=== PATIENT | male | born 1935 | race Caucasian/White ===

== ENCOUNTER 2016-10-17 12:52 | Inpatient (IN) | payer MEDICARE ==
[~2016-10-17] VITALS: Ht 175.3 cm; Wt 71.0 kg
[~2016-10-17 12:52] MED LIST: AMLO5TAB66 PO; DIVA125T PO; DIVA125T2 PO; METF500T4 PO; OMEP10CA41 PO
[2016-10-17 14:29] VITALS: BP 120/69
[2016-10-17] MEDS ORDERED: DEXTROSE 50%-WATER 25 GM/50 ML SYRINGE IVP PRN (15:15)
[2016-10-17 15:48] VITALS: BP 115/71
[2016-10-17] MEDS ORDERED: 0.9% SODIUM CHLORIDE 10 ML SYRINGE IVP PRN (16:15)
[2016-10-17] MEDS: SODIUM CHLORIDE 0.9% 1,000 ML IV SCH (16:21)
[2016-10-17 16:49] LABS: BASOPHILS % (AUTO) 0.4 % (0.0-2.0); EOSINOPHILS % (AUTO) 0.3 % (1.0-6.0); HEMATOCRIT 44.5 % (41-53); HEMOGLOBIN 14.4 g/dL (13.5-17.5); LYMPHOCYTES # (AUTO) 1.7 K/uL (1.0-4.8); LYMPHOCYTES % (AUTO) 18.4 % (22.0-44.0); MEAN CORPUSCULAR HEMOGLOBIN 29.2 pg (26.0-34.0); MEAN CORPUSCULAR HGB CONC 32.4 G/dL (31.0-37.0); MEAN CORPUSCULAR VOLUME 90 fL (80-100); MONOCYTES # (AUTO) 1.3 K/uL (0.1-1.0); MONOCYTES % (AUTO) 13.7 % (2.0-9.0); NEUTROPHILS # (AUTO) 6.2 K/uL (1.8-7.7); NEUTROPHILS % (AUTO) 67.2 % (40.0-70.0); PLATELET COUNT (AUTO) 285 K/uL (150-450); RED BLOOD CELL COUNT(AUTO) 4.93 MIL/uL (4.50-5.90); RED CELL DISTRIBUTION WIDTH 15.3 % (11.5-14.5); WHITE BLOOD COUNT (AUTO) 9.2 K/uL (4.5-11.0)
[2016-10-17 17:23] LABS: ALBUMIN 3.3 g/dL (3.4-5.0); BILIRUBIN,TOTAL 0.4 mg/dL (0.1-1.0); CHOL/HDL RATIO 6.3 (4.2-7.3); CREATININE 2.44 mg/dL (0.60-1.30); POTASSIUM 5.2 mmol/L (3.5-5.1); THYROID STIMULATING HORMONE 2.98 uIU/mL (0.36-3.74); TOTAL PROTEIN, SERUM 8.2 g/dL (6.4-8.2)
[2016-10-17 17:42] LABS: GLUCOSE COMMENT 1 Received Meds; GLUCOSE,POINT OF CARE 311 MG/DL (70-110)
[2016-10-17 17:51] LABS: HEMOGLOBIN A1C 8.3 % (4.5-6.2)
[2016-10-17] MEDS: INSULIN ASPART 100 UNITS/ML SQ PRN (17:56)
[2016-10-17 19:17] VITALS: BP 128/70
[2016-10-17] MEDS ORDERED: *CLINICAL-RENAL DOSING MEDICATIONS CLINICAL ONE ×2 (19:45)
[2016-10-17] MEDS ORDERED: SitaGLIPtin PHOSPHATE 50 MG TABLET PO SCH (19:45)
[2016-10-17 20:51] LABS: APPEARANCE,URINE CLEAR (CLEAR); PH,URINE 5.5 (5.0-8.0); PROTEIN,URINE NEGATIVE (NEGATIVE)
[2016-10-17 20:52] LABS: GLUCOSE, URINE (UA) 500 mg/dL (NEGATIVE); KETONES,URINE 40 mg/dL (NEGATIVE); OCCULT BLOOD,URINE TRACE (NEGATIVE)
[2016-10-17 20:53] LABS: LEUKOCYTE ESTERASE ,URINE NEGATIVE (NEGATIVE)
[2016-10-17 20:54] LABS: ADD UA MICROSCOPIC YES
[2016-10-17 21:31] LABS: SQUAMOUS EPITHELIAL CELL,UR Rare /LPF (None Seen)
[2016-10-17 21:33] LABS: RBC,URINE 0-2 /HPF (0-2)
[2016-10-17] MEDS: MEMANTINE HCL 5 MG TABLET PO SCH (22:08)
[2016-10-17] MEDS: DIVALPROEX SODIUM 125 MG DR TABLET PO SCH (22:08)
[2016-10-17] MEDS: SitaGLIPtin PHOSPHATE 25 MG TABLET PO SCH (22:08)
[2016-10-17 22:21] LABS: GLUCOSE,POINT OF CARE 139 MG/DL (70-110)
[2016-10-17 23:28] VITALS: BP 112/50
[2016-10-18 04:15] VITALS: BP 131/68
[2016-10-18] MEDS: INSULIN ASPART 100 UNITS/ML SQ PRN ×3 (06:01→23:55)
[2016-10-18 06:07] LABS: GLUCOSE,POINT OF CARE 201 MG/DL (70-110)
[2016-10-18 06:40] LABS: BASOPHILS % (AUTO) 0.4 % (0.0-2.0); EOSINOPHILS % (AUTO) 1.2 % (1.0-6.0); HEMATOCRIT 40.9 % (41-53); HEMOGLOBIN 13.3 g/dL (13.5-17.5); LYMPHOCYTES % (AUTO) 21.8 % (22.0-44.0); MEAN CORPUSCULAR HEMOGLOBIN 29.6 pg (26.0-34.0); MEAN CORPUSCULAR HGB CONC 32.4 G/dL (31.0-37.0); MEAN CORPUSCULAR VOLUME 91 fL (80-100); MONOCYTES # (AUTO) 1.2 K/uL (0.1-1.0); MONOCYTES % (AUTO) 13.4 % (2.0-9.0); NEUTROPHILS # (AUTO) 5.7 K/uL (1.8-7.7); NEUTROPHILS % (AUTO) 63.2 % (40.0-70.0); PLATELET COUNT (AUTO) 267 K/uL (150-450); RED BLOOD CELL COUNT(AUTO) 4.48 MIL/uL (4.50-5.90); RED CELL DISTRIBUTION WIDTH 15.1 % (11.5-14.5)
[2016-10-18 06:59] LABS: CALCIUM, TOTAL 8.9 mg/dL (8.8-10.5); CREATININE 1.94 mg/dL (0.60-1.30); MAGNESIUM 2.6 mg/dL (1.80-2.40); PHOSPHORUS 4.9 mg/dL (2.5-4.9); POTASSIUM 5.2 mmol/L (3.5-5.1)
[2016-10-18 07:04] VITALS: BP 119/59
[2016-10-18 08:20] LABS: APPEARANCE,URINE CLOUDY (CLEAR); GLUCOSE, URINE (UA) >=1000 mg/dL (NEGATIVE); KETONES,URINE 40 mg/dL (NEGATIVE); LEUKOCYTE ESTERASE ,URINE NEGATIVE (NEGATIVE); OCCULT BLOOD,URINE NEGATIVE (NEGATIVE); PH,URINE 5.5 (5.0-8.0); PROTEIN,URINE NEGATIVE (NEGATIVE)
[2016-10-18 08:23] LABS: ADD UA MICROSCOPIC YES
[2016-10-18] MEDS: SODIUM CHLORIDE 0.9% 1,000 ML IV SCH (08:24)
[2016-10-18] MEDS: AmLODIPine BESYLATE 5 MG TABLET PO SCH (08:24)
[2016-10-18] MEDS: DIVALPROEX SODIUM 125 MG DR TABLET PO SCH ×2 (08:25→20:18)
[2016-10-18] MEDS: MEMANTINE HCL 5 MG TABLET PO SCH ×2 (08:25→20:18)
[2016-10-18] MEDS: OMEPRAZOLE 10 MG CAPSULE PO SCH (08:25)
[2016-10-18] MEDS: SitaGLIPtin PHOSPHATE 25 MG TABLET PO SCH (08:25)
[2016-10-18 08:31] LABS: RBC,URINE 0-2 /HPF (0-2); SQUAMOUS EPITHELIAL CELL,UR Few /LPF (None Seen)
[2016-10-18 11:17] VITALS: BP 150/78
[2016-10-18 11:26] LABS: GLUCOSE,POINT OF CARE 197 MG/DL (70-110)
[2016-10-18] MEDS ORDERED: INFLUENZA VIRUS VACCINE QVS 2016-17 (3YR+)/PF 60 MCG/0.5 ML SYRINGE IM ONE (12:30)
[2016-10-18] MEDS ORDERED: DEXTROSE 5%-0.45% SODIUM CHL 1,000 ML IV SCH (14:15)
[2016-10-18 15:07] VITALS: BP 117/63
[2016-10-18] MEDS: SODIUM CHLORIDE 0.45% 1,000 ML IV SCH (16:14)
[2016-10-18 16:57] LABS: GLUCOSE COMMENT 1 Received Meds; GLUCOSE,POINT OF CARE 239 MG/DL (70-110)
[2016-10-18 21:24] VITALS: BP 124/72
[2016-10-18 23:42] VITALS: BP 104/54
[2016-10-19] MEDS: SODIUM CHLORIDE 0.45% 1,000 ML IV SCH (05:51)
[2016-10-19] MEDS: INSULIN ASPART 100 UNITS/ML SQ PRN ×4 (06:11→20:47)
[2016-10-19 06:34] VITALS: BP 126/68
[2016-10-19 06:42] LABS: GLUCOSE COMMENT 1 Received Meds; GLUCOSE,POINT OF CARE 134 MG/DL (70-110)
[2016-10-19 06:43] LABS: GLUCOSE,POINT OF CARE 120 MG/DL (70-110)
[2016-10-19 08:00] VITALS: BP 126/65
[2016-10-19] MEDS: HEPARIN SODIUM,PORCINE 5,000 UNITS/ML VIAL SQ SCH ×2 (08:43→20:32)
[2016-10-19] MEDS: MEMANTINE HCL 5 MG TABLET PO SCH ×2 (08:43→20:31)
[2016-10-19] MEDS: DIVALPROEX SODIUM 125 MG DR TABLET PO SCH ×2 (08:43→20:30)
[2016-10-19] MEDS: SitaGLIPtin PHOSPHATE 25 MG TABLET PO SCH (08:43)
[2016-10-19] MEDS: AmLODIPine BESYLATE 5 MG TABLET PO SCH (08:44)
[2016-10-19] MEDS: OMEPRAZOLE 10 MG CAPSULE PO SCH (08:44)
[2016-10-19 11:04] LABS: BASOPHILS % (AUTO) 0.4 % (0.0-2.0); EOSINOPHILS % (AUTO) 1.4 % (1.0-6.0); HEMATOCRIT 34.8 % (41-53); HEMOGLOBIN 11.4 g/dL (13.5-17.5); LYMPHOCYTES # (AUTO) 1.5 K/uL (1.0-4.8); MEAN CORPUSCULAR HEMOGLOBIN 29.5 pg (26.0-34.0); MEAN CORPUSCULAR HGB CONC 32.7 G/dL (31.0-37.0); MEAN CORPUSCULAR VOLUME 90 fL (80-100); MONOCYTES # (AUTO) 0.8 K/uL (0.1-1.0); NEUTROPHILS # (AUTO) 3.4 K/uL (1.8-7.7); NEUTROPHILS % (AUTO) 59.2 % (40.0-70.0); PLATELET COUNT (AUTO) 209 K/uL (150-450); RED BLOOD CELL COUNT(AUTO) 3.85 MIL/uL (4.50-5.90); RED CELL DISTRIBUTION WIDTH 14.9 % (11.5-14.5); WHITE BLOOD COUNT (AUTO) 5.8 K/uL (4.5-11.0)
[2016-10-19 11:21] LABS: CALCIUM, TOTAL 7.7 mg/dL (8.8-10.5); CREATININE 1.3 mg/dL (0.60-1.30); POTASSIUM 4.8 mmol/L (3.5-5.1)
[2016-10-19 11:25] LABS: MAGNESIUM 2.1 mg/dL (1.80-2.40); PHOSPHORUS 2.8 mg/dL (2.5-4.9)
[2016-10-19 12:01] VITALS: BP 108/63
[2016-10-19 16:02] LABS: GLUCOSE,POINT OF CARE 230 MG/DL (70-110)
[2016-10-19 16:33] VITALS: BP 125/60
[2016-10-19 19:50] VITALS: BP 119/59
[2016-10-19] MEDS ORDERED: INSULIN DETEMIR 100 UNITS/ML SQ SCH (21:00)
[2016-10-19 21:48] LABS: GLUCOSE COMMENT 1 Received Meds; GLUCOSE,POINT OF CARE 138 MG/DL (70-110)
[2016-10-19 22:07] LABS: GLUCOSE,POINT OF CARE 132 MG/DL (70-110)
[2016-10-19 23:15] VITALS: BP 124/64
[2016-10-20 03:15] VITALS: BP 130/66
[2016-10-20] MEDS: INSULIN ASPART 100 UNITS/ML SQ PRN ×4 (06:20→20:09)
[2016-10-20 07:21] LABS: BASOPHILS % (AUTO) 0.3 % (0.0-2.0); EOSINOPHILS % (AUTO) 2.4 % (1.0-6.0); HEMATOCRIT 32.4 % (41-53); HEMOGLOBIN 10.7 g/dL (13.5-17.5); LYMPHOCYTES # (AUTO) 1.1 K/uL (1.0-4.8); LYMPHOCYTES % (AUTO) 27.8 % (22.0-44.0); MEAN CORPUSCULAR HEMOGLOBIN 29.5 pg (26.0-34.0); MEAN CORPUSCULAR HGB CONC 32.9 G/dL (31.0-37.0); MEAN CORPUSCULAR VOLUME 90 fL (80-100); MONOCYTES # (AUTO) 0.8 K/uL (0.1-1.0); MONOCYTES % (AUTO) 20.6 % (2.0-9.0); NEUTROPHILS % (AUTO) 48.9 % (40.0-70.0); PLATELET COUNT (AUTO) 184 K/uL (150-450); RED BLOOD CELL COUNT(AUTO) 3.61 MIL/uL (4.50-5.90); RED CELL DISTRIBUTION WIDTH 14.9 % (11.5-14.5)
[2016-10-20 07:35] LABS: ANION GAP 10 mmol/L (8-16); CARBON DIOXIDE 24 mmol/L (22-29); CHLORIDE 106 mmol/L (98-107); GLOMERULAR FILTR. RATE CALC > 60 mL/min (>60); POTASSIUM 3.5 mmol/L (3.5-5.1); SODIUM SERUM 140 mmol/L (136-145); UREA NITROGEN, BLOOD 12 mg/dL (7-18)
[2016-10-20 07:49] VITALS: BP 136/79
[2016-10-20] MEDS: OMEPRAZOLE 10 MG CAPSULE PO SCH (08:06)
[2016-10-20] MEDS: AmLODIPine BESYLATE 5 MG TABLET PO SCH (08:06)
[2016-10-20] MEDS: MEMANTINE HCL 5 MG TABLET PO SCH ×2 (08:07→19:45)
[2016-10-20] MEDS: SitaGLIPtin PHOSPHATE 25 MG TABLET PO SCH (08:07)
[2016-10-20] MEDS: HEPARIN SODIUM,PORCINE 5,000 UNITS/ML VIAL SQ SCH ×2 (08:07→19:45)
[2016-10-20] MEDS: DIVALPROEX SODIUM 125 MG DR TABLET PO SCH ×2 (08:07→19:43)
[2016-10-20 10:37] LABS: GLUCOSE COMMENT 1 Received Meds; GLUCOSE,POINT OF CARE 168 MG/DL (70-110)
[2016-10-20 11:23] VITALS: BP 127/79
[2016-10-20 11:32] LABS: GLUCOSE,POINT OF CARE 207 MG/DL (70-110)
[2016-10-20 15:16] VITALS: BP 120/69
[2016-10-20 18:32] LABS: GLUCOSE,POINT OF CARE 265 MG/DL (70-110)
[2016-10-20] MEDS ORDERED: DIVA125T PO (18:36)
[2016-10-20] MEDS ORDERED: HEPA500035 SQ (18:37)
[2016-10-20] MEDS ORDERED: INSU100V12 SQ (18:38)
[2016-10-20] MEDS ORDERED: MEMA5 PO (18:39)
[2016-10-20] MEDS ORDERED: SITA50 PO (18:40)
[2016-10-20] MEDS ORDERED: OMEP10 PO (18:40)
[2016-10-20] MEDS ORDERED: SIMV-259 PO (18:40)
[2016-10-20] MEDS ORDERED: INSU100C6 SQ (18:42)
[2016-10-20] MEDS ORDERED: INSNOV SQ (18:45)
[2016-10-20 20:01] VITALS: BP 102/44
[2016-10-20] MEDS ORDERED: INSULIN DETEMIR 100 UNITS/ML SQ SCH (21:00)
[2016-10-21] MEDS ORDERED: SitaGLIPtin PHOSPHATE 50 MG TABLET PO SCH (09:00)
[2016-10-21] MEDS ORDERED: SIMVASTATIN 10 MG TABLET PO SCH (09:00)
[2016-10-21 10:07] LABS: GLUCOSE COMMENT 1 Received Meds; GLUCOSE,POINT OF CARE 308 MG/DL (70-110)
== END 2016-10-20 20:50 | DRG 683 ==
LOC: 6N 14:06
PROVIDERS: ADMIT Internal Medicine; ATTEND Internal Medicine
PROC: 3E0234Z Introduction of Serum, Toxoid and Vaccine into Muscle, Percutaneous Approach (ICD-10-PCS; principal; 2016-10-19)
DX: N17.9 Acute kidney failure, unspecified (principal); N39.0 Urinary tract infection, site not specified; F03.91 Unspecified dementia, unspecified severity, with behavioral disturbance; N18.3 Chronic kidney disease, stage 3 (moderate); E78.2 Mixed hyperlipidemia; E87.8 Other disorders of electrolyte and fluid balance, not elsewhere classified; E87.5 Hyperkalemia; I13.10 Hypertensive heart and chronic kidney disease without heart failure, with stage 1 through stage 4 chronic kidney disease, or unspecified chronic kidney disease; E11.22 Type 2 diabetes mellitus with diabetic chronic kidney disease; E11.65 Type 2 diabetes mellitus with hyperglycemia; R62.7 Adult failure to thrive; E86.0 Dehydration; E55.9 Vitamin D deficiency, unspecified; F29 Unspecified psychosis not due to a substance or known physiological condition; Z79.84 Long term (current) use of oral hypoglycemic drugs; Z79.899 Other long term (current) drug therapy; Z83.3 Family history of diabetes mellitus; Z23 Encounter for immunization
CPT/HCPCS: 76770; 82306; 82570; 82962; 83036; 83735; 83970; 84100; 84156; 84443; 84540; 87086; 87106; 90471; J1644; J7030

== ENCOUNTER 2017-12-12 19:16 | Inpatient (IN) | payer MEDICARE, OTHER ==
[~2017-12-12 19:16] MED LIST changes: +CARV6 PO; -DIVA125T PO; -DIVA125T2 PO; +DIVA250T25 PO; +FAMO20 PO; +INSNOV SQ; +INSU100V12 SQ; -METF500T4 PO; +METF500T6 PO; +OMEP10 PO; -OMEP10CA41 PO; +SIMV-259 PO; +SITA50 PO; +VITAD1000 PO; +ZOLP10TA7 PO
[2017-12-12 19:20] VITALS: BP 125/61
[2017-12-12 20:37] LABS: BASOPHILS % (AUTO) 0.7 % (0.0-2.0); EOSINOPHILS % (AUTO) 2.2 % (1.0-6.0); HEMATOCRIT 31.6 % (41-53); HEMOGLOBIN 10.7 g/dL (13.5-17.5); LYMPHOCYTES # (AUTO) 1.4 K/uL (1.0-4.8); LYMPHOCYTES % (AUTO) 19.7 % (22.0-44.0); MEAN CORPUSCULAR HEMOGLOBIN 29.3 pg (26.0-34.0); MEAN CORPUSCULAR HGB CONC 33.9 G/dL (31.0-37.0); MEAN CORPUSCULAR VOLUME 87 fL (80-100); MONOCYTES # (AUTO) 1.2 K/uL (0.1-1.0); NEUTROPHILS # (AUTO) 4.2 K/uL (1.8-7.7); NEUTROPHILS % (AUTO) 60.4 % (40.0-70.0); PLATELET COUNT (AUTO) 231 K/uL (150-450); RED BLOOD CELL COUNT(AUTO) 3.66 MIL/uL (4.50-5.90); RED CELL DISTRIBUTION WIDTH 14.9 % (11.5-14.5)
[2017-12-12 20:57] LABS: CALCIUM, TOTAL 8.3 mg/dL (8.8-10.5); CREATININE 1.18 mg/dL (0.60-1.30); POTASSIUM 4.8 mmol/L (3.5-5.1)
[2017-12-12 21:00] LABS: PROTHROMBIN TIME 10.6 SEC (9.4-11.6)
[2017-12-12 21:03] LABS: BILIRUBIN,TOTAL 0.4 mg/dL (0.1-1.0); MAGNESIUM 1.5 mg/dL (1.80-2.40); TOTAL PROTEIN, SERUM 6.7 g/dL (6.4-8.2)
[2017-12-12 21:32] LABS: GLUCOMETER DEV NAME(LOC) 6N 2D; GLUCOSE,POINT OF CARE 300 MG/DL (70-110)
[2017-12-12] MEDS ORDERED: SIMVASTATIN 10 MG TABLET PO SCH (22:00)
[2017-12-12] MEDS ORDERED: ZOLPIDEM TARTRATE 5 MG TABLET PO PRN (22:00)
[2017-12-12] MEDS ORDERED: ZOLPIDEM TARTRATE 10 MG TABLET PO PRN (22:00)
[2017-12-12] MEDS ORDERED: ONDANSETRON HCL 4 MG/2 ML VIAL IVP PRN (22:00)
[2017-12-12] MEDS ORDERED: GLUCAGON,HUMAN RECOMBINANT 1 MG VIAL IM PRN (22:00)
[2017-12-12] MEDS ORDERED: 0.9% SODIUM CHLORIDE 10 ML SYRINGE IVP PRN (22:00)
[2017-12-12] MEDS: INSULIN LISPRO 100 UNITS/ML SQ PRN (22:19)
[2017-12-12] MEDS: HEPARIN SODIUM,PORCINE 5,000 UNITS/ML VIAL SQ SCH (23:12)
[2017-12-12 23:20] VITALS: BP 112/58
[2017-12-13 04:28] LABS: APPEARANCE,URINE CLEAR (CLEAR); BILIRUBIN,URINE NEGATIVE (NEGATIVE); GLUCOSE, URINE (UA) >=1000 mg/dL (NEGATIVE); KETONES,URINE TRACE mg/dL (NEGATIVE); LEUKOCYTE ESTERASE ,URINE NEGATIVE (NEGATIVE); NITRATE,URINE NEGATIVE (NEGATIVE); OCCULT BLOOD,URINE NEGATIVE (NEGATIVE); PH,URINE 5.5 (5.0-8.0); PROTEIN,URINE NEGATIVE (NEGATIVE); UROBILINOGEN,URINE 0.2 mg/dL (<=1.0)
[2017-12-13 04:36] VITALS: BP 102/57
[2017-12-13 05:32] LABS: BACTERIA,URINE None Seen /HPF (None Seen); RBC,URINE None Seen /HPF (0-2); WBC,URINE None Seen /HPF (0-5)
[2017-12-13] MEDS: INSULIN LISPRO 100 UNITS/ML SQ PRN ×4 (06:11→20:20)
[2017-12-13 06:54] LABS: EOSINOPHILS % (AUTO) 2.3 % (1.0-6.0); HEMATOCRIT 32.3 % (41-53); HEMOGLOBIN 11.1 g/dL (13.5-17.5); LYMPHOCYTES # (AUTO) 1.3 K/uL (1.0-4.8); LYMPHOCYTES % (AUTO) 22.1 % (22.0-44.0); MEAN CORPUSCULAR HEMOGLOBIN 29.6 pg (26.0-34.0); MEAN CORPUSCULAR HGB CONC 34.2 G/dL (31.0-37.0); MEAN CORPUSCULAR VOLUME 86 fL (80-100); MONOCYTES % (AUTO) 16.7 % (2.0-9.0); NEUTROPHILS # (AUTO) 3.3 K/uL (1.8-7.7); NEUTROPHILS % (AUTO) 57.9 % (40.0-70.0); PLATELET COUNT (AUTO) 225 K/uL (150-450); RED BLOOD CELL COUNT(AUTO) 3.74 MIL/uL (4.50-5.90); RED CELL DISTRIBUTION WIDTH 14.5 % (11.5-14.5)
[2017-12-13 06:57] LABS: ANION GAP 3 mmol/L (8-16); CALCIUM, TOTAL 8.4 mg/dL (8.8-10.5); CARBON DIOXIDE 32 mmol/L (22-29); CHLORIDE 100 mmol/L (98-107); CREATININE 1.12 mg/dL (0.60-1.30); GLOMERULAR FILTR. RATE CALC > 60 mL/min (>60); GLUCOSE,RANDOM 277 mg/dL (70-110); POTASSIUM 4.3 mmol/L (3.5-5.1); SODIUM SERUM 135 mmol/L (136-145); UREA NITROGEN, BLOOD 16 mg/dL (7-18)
[2017-12-13 07:08] LABS: GLUCOMETER DEV NAME(LOC) 6N 2D; GLUCOSE,POINT OF CARE 288 MG/DL (70-110)
[2017-12-13] MEDS: CARVEDILOL 6.25 MG TABLET PO SCH ×2 (08:23→20:20)
[2017-12-13] MEDS: MetFORMIN HCL 500 MG TABLET PO SCH ×2 (08:23→17:36)
[2017-12-13] MEDS: HEPARIN SODIUM,PORCINE 5,000 UNITS/ML VIAL SQ SCH ×3 (08:23→22:53)
[2017-12-13] MEDS: SitaGLIPtin PHOSPHATE 50 MG TABLET PO SCH (08:23)
[2017-12-13] MEDS: DIVALPROEX SODIUM 250 MG DR TABLET PO SCH ×2 (08:23→20:20)
[2017-12-13] MEDS: AmLODIPine BESYLATE 5 MG TABLET PO SCH (08:23)
[2017-12-13] MEDS: PANTOPRAZOLE SODIUM 40 MG/VIAL IVP SCH (08:23)
[2017-12-13] MEDS: CHOLECALCIFEROL (VIT D3) 1,000 UNITS TABLET PO SCH (08:23)
[2017-12-13] MEDS ORDERED: MAGNESIUM SULFATE 4 GM/WATER 100 ML IV PRN (08:30)
[2017-12-13] MEDS ORDERED: MAGNESIUM OXIDE 400 MG TABLET PO PRN (08:30)
[2017-12-13 08:31] VITALS: BP 128/68
[2017-12-13] MEDS ORDERED: SODIUM CHLORIDE 0.9% 250 ML IV ONE (08:44)
[2017-12-13] MEDS ORDERED: OMEPRAZOLE 10 MG CAPSULE PO SCH (09:00)
[2017-12-13] MEDS: MAGNESIUM SULFATE 2 GM in DEXTROSE 5%-WATER 50 ML IV PRN (10:00)
[2017-12-13 11:44] VITALS: BP 129/68
[2017-12-13 11:59] LABS: GLUCOMETER DEV NAME(LOC) 6N 1E; GLUCOSE,POINT OF CARE 251 MG/DL (70-110)
[2017-12-13 15:48] VITALS: BP 172/70
[2017-12-13 18:43] LABS: GLUCOMETER DEV NAME(LOC) 6N 2D; GLUCOSE,POINT OF CARE 179 MG/DL (70-110)
[2017-12-13] MEDS: SIMVASTATIN 20 MG TABLET PO SCH (20:20)
[2017-12-13 20:21] VITALS: BP 109/54
[2017-12-13 23:54] VITALS: BP 113/58
[2017-12-14 01:57] LABS: GLUCOMETER DEV NAME(LOC) 6N 2D; GLUCOSE,POINT OF CARE 252 MG/DL (70-110)
[2017-12-14 04:25] VITALS: BP 121/64
[2017-12-14] MEDS: INSULIN LISPRO 100 UNITS/ML SQ PRN ×4 (05:52→20:46)
[2017-12-14 06:41] LABS: BASOPHILS % (AUTO) 0.8 % (0.0-2.0); EOSINOPHILS % (AUTO) 2.9 % (1.0-6.0); HEMATOCRIT 33.1 % (41-53); HEMOGLOBIN 11.4 g/dL (13.5-17.5); LYMPHOCYTES # (AUTO) 1.2 K/uL (1.0-4.8); LYMPHOCYTES % (AUTO) 21.5 % (22.0-44.0); MEAN CORPUSCULAR HEMOGLOBIN 29.7 pg (26.0-34.0); MEAN CORPUSCULAR HGB CONC 34.6 G/dL (31.0-37.0); MEAN CORPUSCULAR VOLUME 86 fL (80-100); MONOCYTES # (AUTO) 0.9 K/uL (0.1-1.0); MONOCYTES % (AUTO) 15.3 % (2.0-9.0); NEUTROPHILS # (AUTO) 3.4 K/uL (1.8-7.7); NEUTROPHILS % (AUTO) 59.5 % (40.0-70.0); PLATELET COUNT (AUTO) 228 K/uL (150-450); RED BLOOD CELL COUNT(AUTO) 3.85 MIL/uL (4.50-5.90); RED CELL DISTRIBUTION WIDTH 15.1 % (11.5-14.5)
[2017-12-14 07:02] LABS: ANION GAP 6 mmol/L (8-16); CALCIUM, TOTAL 8.7 mg/dL (8.8-10.5); CARBON DIOXIDE 30 mmol/L (22-29); CHLORIDE 99 mmol/L (98-107); CREATININE 1.12 mg/dL (0.60-1.30); GLOMERULAR FILTR. RATE CALC > 60 mL/min (>60); GLUCOSE,RANDOM 265 mg/dL (70-110); POTASSIUM 4.4 mmol/L (3.5-5.1); SODIUM SERUM 135 mmol/L (136-145); UREA NITROGEN, BLOOD 14 mg/dL (7-18)
[2017-12-14 07:52] VITALS: BP 146/65
[2017-12-14] MEDS: SitaGLIPtin PHOSPHATE 50 MG TABLET PO SCH (08:33)
[2017-12-14] MEDS: DIVALPROEX SODIUM 250 MG DR TABLET PO SCH ×2 (08:33→20:45)
[2017-12-14] MEDS: CARVEDILOL 6.25 MG TABLET PO SCH ×2 (08:33→20:45)
[2017-12-14] MEDS: MetFORMIN HCL 500 MG TABLET PO SCH ×2 (08:33→17:15)
[2017-12-14] MEDS: PANTOPRAZOLE SODIUM 40 MG/VIAL IVP SCH ×3 (08:33→09:07)
[2017-12-14] MEDS: HEPARIN SODIUM,PORCINE 5,000 UNITS/ML VIAL SQ SCH ×2 (08:34→17:15)
[2017-12-14] MEDS: CHOLECALCIFEROL (VIT D3) 1,000 UNITS TABLET PO SCH (08:34)
[2017-12-14] MEDS: AmLODIPine BESYLATE 5 MG TABLET PO SCH (08:34)
[2017-12-14 09:03] LABS: GLUCOMETER DEV NAME(LOC) 6N 1E; GLUCOSE,POINT OF CARE 263 MG/DL (70-110)
[2017-12-14] MEDS: MAGNESIUM SULFATE 2 GM in DEXTROSE 5%-WATER 50 ML IV PRN (09:06)
[2017-12-14 11:44] LABS: GLUCOMETER DEV NAME(LOC) 6N 2D; GLUCOSE,POINT OF CARE 283 MG/DL (70-110)
[2017-12-14 12:12] VITALS: BP 125/56
[2017-12-14] MEDS ORDERED: LEVO500 PO (14:11)
[2017-12-14 16:00] VITALS: BP 134/62
[2017-12-14 17:32] LABS: GLUCOMETER DEV NAME(LOC) 6N 1E; GLUCOSE,POINT OF CARE 202 MG/DL (70-110)
[2017-12-14 19:00] VITALS: BP 135/70
[2017-12-14] MEDS: SIMVASTATIN 20 MG TABLET PO SCH (20:44)
[2017-12-14 21:42] LABS: GLUCOMETER DEV NAME(LOC) 6N 1E; GLUCOSE,POINT OF CARE 258 MG/DL (70-110)
[2017-12-15] MEDS: HEPARIN SODIUM,PORCINE 5,000 UNITS/ML VIAL SQ SCH ×2 (00:01→08:59)
[2017-12-15 00:04] VITALS: BP 120/57
[2017-12-15 04:00] VITALS: BP 139/59
[2017-12-15] MEDS: INSULIN LISPRO 100 UNITS/ML SQ PRN ×2 (05:52→11:59)
[2017-12-15 06:23] LABS: GLUCOMETER DEV NAME(LOC) 6N 2D; GLUCOSE,POINT OF CARE 284 MG/DL (70-110)
[2017-12-15 07:49] VITALS: BP 146/79
[2017-12-15] MEDS: MetFORMIN HCL 500 MG TABLET PO SCH (08:57)
[2017-12-15] MEDS: CARVEDILOL 6.25 MG TABLET PO SCH (08:57)
[2017-12-15] MEDS: DIVALPROEX SODIUM 250 MG DR TABLET PO SCH (08:58)
[2017-12-15] MEDS: SitaGLIPtin PHOSPHATE 50 MG TABLET PO SCH (08:58)
[2017-12-15] MEDS: AmLODIPine BESYLATE 5 MG TABLET PO SCH (08:58)
[2017-12-15] MEDS: CHOLECALCIFEROL (VIT D3) 1,000 UNITS TABLET PO SCH (08:58)
[2017-12-15] MEDS: PANTOPRAZOLE SODIUM 40 MG/VIAL IVP SCH ×2 (08:59→09:00)
[2017-12-15 11:53] VITALS: BP 130/68
[2017-12-15 12:18] LABS: GLUCOMETER DEV NAME(LOC) 6N 2D; GLUCOSE,POINT OF CARE 242 MG/DL (70-110)
== END 2017-12-15 14:47 | DRG 690 ==
LOC: 6N 19:28
PROVIDERS: ADMIT Internal Medicine; ATTEND Internal Medicine
DX: N39.0 Urinary tract infection, site not specified (principal); E11.22 Type 2 diabetes mellitus with diabetic chronic kidney disease; E86.0 Dehydration; N12 Tubulo-interstitial nephritis, not specified as acute or chronic; F03.90 Unspecified dementia, unspecified severity, without behavioral disturbance, psychotic disturbance, mood disturbance, and anxiety; E83.42 Hypomagnesemia; K21.9 Gastro-esophageal reflux disease without esophagitis; F20.9 Schizophrenia, unspecified; E78.00 Pure hypercholesterolemia, unspecified; I12.9 Hypertensive chronic kidney disease with stage 1 through stage 4 chronic kidney disease, or unspecified chronic kidney disease; N18.9 Chronic kidney disease, unspecified; Z79.4 Long term (current) use of insulin; Z79.899 Other long term (current) drug therapy
CPT/HCPCS: 83036; 83735; 87081; 87086; 97165; C9113; J1644; J3475; J7050; J7060

== ENCOUNTER 2017-12-16 17:51 | Inpatient (IN) | payer MEDICARE ==
[~2017-12-16] VITALS: Ht 170.2 cm; Wt 74.7 kg
[~2017-12-16 17:51] MED LIST changes: +LEVO500 PO
[2017-12-16] MEDS ORDERED: SODIUM CHLORIDE 0.9% 1,000 ML IV ONE (18:45)
[2017-12-16 19:07] LABS: BASOPHILS % (AUTO) 0.8 % (0.0-2.0); EOSINOPHILS % (AUTO) 1.4 % (1.0-6.0); HEMOGLOBIN 12.4 g/dL (13.5-17.5); LYMPHOCYTES # (AUTO) 1.1 K/uL (1.0-4.8); LYMPHOCYTES % (AUTO) 19.1 % (22.0-44.0); MEAN CORPUSCULAR HEMOGLOBIN 29.7 pg (26.0-34.0); MEAN CORPUSCULAR HGB CONC 34.3 G/dL (31.0-37.0); MEAN CORPUSCULAR VOLUME 87 fL (80-100); MONOCYTES % (AUTO) 18.2 % (2.0-9.0); NEUTROPHILS # (AUTO) 3.4 K/uL (1.8-7.7); NEUTROPHILS % (AUTO) 60.5 % (40.0-70.0); PLATELET COUNT (AUTO) 249 K/uL (150-450); RED BLOOD CELL COUNT(AUTO) 4.16 MIL/uL (4.50-5.90); RED CELL DISTRIBUTION WIDTH 14.7 % (11.5-14.5)
[2017-12-16 19:20] LABS: ANION GAP 8 mmol/L (8-16); CALCIUM, TOTAL 8.9 mg/dL (8.8-10.5); CARBON DIOXIDE 28 mmol/L (22-29); CHLORIDE 96 mmol/L (98-107); CREATININE 1.34 mg/dL (0.60-1.30); GLOMERULAR FILTR. RATE CALC 51 mL/min (>60); POTASSIUM 4.8 mmol/L (3.5-5.1); SODIUM SERUM 132 mmol/L (136-145); UREA NITROGEN, BLOOD 19 mg/dL (7-18)
[2017-12-16 19:32] LABS: ALANINE AMINOTRANSFERASE 21 U/L (12-78); ALBUMIN 3.3 g/dL (3.4-5.0); ALKALINE PHOSPHATASE 121 U/L (46-116); ASPARTATE AMINOTRANSFERASE 12 U/L (15-37); BILIRUBIN,TOTAL 0.5 mg/dL (0.1-1.0); THYROID STIMULATING HORMONE 3.51 uIU/mL (0.36-3.74); TOTAL PROTEIN, SERUM 7.6 g/dL (6.4-8.2); VALPROIC ACID 38 mcg/mL (50-100)
[2017-12-16 19:38] LABS: GLUCOSE,RANDOM 387 mg/dL (70-110)
[2017-12-16 20:04] LABS: APPEARANCE,URINE CLEAR (CLEAR); BILIRUBIN,URINE NEGATIVE (NEGATIVE); GLUCOSE, URINE (UA) >=1000 mg/dL (NEGATIVE); KETONES,URINE TRACE mg/dL (NEGATIVE); LEUKOCYTE ESTERASE ,URINE NEGATIVE (NEGATIVE); NITRATE,URINE NEGATIVE (NEGATIVE); OCCULT BLOOD,URINE NEGATIVE (NEGATIVE); PH,URINE 6.5 (5.0-8.0); PROTEIN,URINE NEGATIVE (NEGATIVE); UROBILINOGEN,URINE 0.2 mg/dL (<=1.0)
[2017-12-16 20:08] LABS: AMPHET/METH SCREEN,URINE NEGATIVE (NEGATIVE); BARBITURATE SCREEN, URINE NEGATIVE (NEGATIVE); BENZODIAZEPINES SCREEN,URINE NEGATIVE (NEGATIVE); CANNABINOID SCREEN,URINE NEGATIVE (NEGATIVE); COCAINE SCREEN,URINE NEGATIVE (NEGATIVE); METHADONE SCREEN, URINE NEGATIVE (NEGATIVE); OPIATE SCREEN,URINE NEGATIVE (NEGATIVE)
[2017-12-16 20:09] LABS: PHENCYCLIDINE SCREEN,URINE NEGATIVE (NEGATIVE)
[2017-12-16 20:16] LABS: BACTERIA,URINE None Seen /HPF (None Seen); RBC,URINE None Seen /HPF (0-2); SQUAMOUS EPITHELIAL CELL,UR Rare /LPF (None Seen); WBC,URINE 0-2 /HPF (0-5)
[2017-12-16] MEDS ORDERED: INSULIN REGULAR, HUMAN 100 UNITS/ML SQ ONE (21:30)
[2017-12-17] MEDS ORDERED: ACETAMINOPHEN 325 MG TABLET PO PRN (11:45)
[2017-12-17] MEDS ORDERED: ONDANSETRON HCL 4 MG/2 ML VIAL IVP PRN (11:45)
[2017-12-17 12:42] LABS: GLUCOSE,POINT OF CARE 301 MG/DL (70-110)
[2017-12-17 14:00] VITALS: BP 149/72
[2017-12-17 16:00] VITALS: BP 152/68
[2017-12-17 19:20] VITALS: BP 134/65
[2017-12-17] MEDS ORDERED: DEXTROSE 50%-WATER 25 GM/50 ML SYRINGE IVP PRN (21:00)
[2017-12-17] MEDS ORDERED: SIMVASTATIN 20 MG TABLET PO SCH (21:00)
[2017-12-17] MEDS ORDERED: ZOLPIDEM TARTRATE 10 MG TABLET PO PRN (21:00)
[2017-12-17] MEDS: CARVEDILOL 6.25 MG TABLET PO SCH (21:41)
[2017-12-17] MEDS: AmLODIPine BESYLATE 5 MG TABLET PO SCH (21:41)
[2017-12-17] MEDS: INSULIN LISPRO 100 UNITS/ML SQ PRN (21:41)
[2017-12-17] MEDS: DIVALPROEX SODIUM 250 MG DR TABLET PO SCH (21:42)
[2017-12-17] MEDS ORDERED: INSULIN LISPRO 100 UNITS/ML SQ ONE (22:00)
[2017-12-17 23:05] VITALS: BP 117/61
[2017-12-17 23:37] LABS: GLUCOMETER DEV NAME(LOC) 6N 2D; GLUCOSE,POINT OF CARE 429 MG/DL (70-110)
[2017-12-18 03:52] VITALS: BP 122/58
[2017-12-18 06:19] LABS: EOSINOPHILS % (AUTO) 2.2 % (1.0-6.0); HEMOGLOBIN 11.7 g/dL (13.5-17.5); LYMPHOCYTES # (AUTO) 1.5 K/uL (1.0-4.8); LYMPHOCYTES % (AUTO) 22.2 % (22.0-44.0); MEAN CORPUSCULAR HEMOGLOBIN 30.4 pg (26.0-34.0); MEAN CORPUSCULAR HGB CONC 35.5 G/dL (31.0-37.0); MEAN CORPUSCULAR VOLUME 86 fL (80-100); MONOCYTES # (AUTO) 1.2 K/uL (0.1-1.0); NEUTROPHILS # (AUTO) 3.9 K/uL (1.8-7.7); NEUTROPHILS % (AUTO) 56.6 % (40.0-70.0); PLATELET COUNT (AUTO) 239 K/uL (150-450); RED BLOOD CELL COUNT(AUTO) 3.86 MIL/uL (4.50-5.90); RED CELL DISTRIBUTION WIDTH 14.9 % (11.5-14.5)
[2017-12-18 06:22] LABS: ANION GAP 6 mmol/L (8-16); CALCIUM, TOTAL 8.6 mg/dL (8.8-10.5); CARBON DIOXIDE 29 mmol/L (22-29); CHLORIDE 100 mmol/L (98-107); CREATININE 1.11 mg/dL (0.60-1.30); GLOMERULAR FILTR. RATE CALC > 60 mL/min (>60); GLUCOSE,RANDOM 156 mg/dL (70-110); POTASSIUM 4.6 mmol/L (3.5-5.1); SODIUM SERUM 135 mmol/L (136-145); UREA NITROGEN, BLOOD 20 mg/dL (7-18)
[2017-12-18] MEDS: INSULIN LISPRO 100 UNITS/ML SQ PRN ×2 (06:24→11:35)
[2017-12-18 06:37] LABS: GLUCOMETER DEV NAME(LOC) 6N 1E; GLUCOSE,POINT OF CARE 160 MG/DL (70-110)
[2017-12-18 07:22] VITALS: BP 108/48
[2017-12-18] MEDS ORDERED: MetFORMIN HCL 500 MG TABLET PO SCH (08:00)
[2017-12-18] MEDS: DIVALPROEX SODIUM 250 MG DR TABLET PO SCH (08:17)
[2017-12-18] MEDS: AmLODIPine BESYLATE 5 MG TABLET PO SCH (08:17)
[2017-12-18] MEDS: CARVEDILOL 6.25 MG TABLET PO SCH (08:17)
[2017-12-18] MEDS ORDERED: CHOLECALCIFEROL (VIT D3) 5,000 UNITS CAPSULE PO SCH (09:00)
[2017-12-18] MEDS ORDERED: SitaGLIPtin PHOSPHATE 50 MG TABLET PO SCH (09:00)
[2017-12-18 11:43] VITALS: BP 127/59
[2017-12-18 15:08] VITALS: BP 141/69
[2017-12-19 05:02] LABS: GLUCOMETER DEV NAME(LOC) 6N 2D; GLUCOSE,POINT OF CARE 377 MG/DL (70-110)
== END 2017-12-18 16:15 | DRG 638 ==
LOC: EMS 17:51 → 6N 12-17 12:07
PROVIDERS: ADMIT Internal Medicine; ATTEND Internal Medicine
DX: E11.65 Type 2 diabetes mellitus with hyperglycemia (principal); F03.91 Unspecified dementia, unspecified severity, with behavioral disturbance; F20.9 Schizophrenia, unspecified; I10 Essential (primary) hypertension; Z79.899 Other long term (current) drug therapy; Z85.038 Personal history of other malignant neoplasm of large intestine
CPT/HCPCS: 70450; 83735; 84443; 96360; 96372; 99285; G0480; J1815; J7030